=== PATIENT | male | born 1995 | race Caucasian/White ===

== ENCOUNTER 2018-10-15 04:20 | Emergency (ER) | payer SELFPAY ==
[~2018-10-15] VITALS: Ht 162.6 cm; Wt 81.0 kg
[2018-10-15 04:23] VITALS: BP 137/80; PULSE 97; RESP 18; Ht 162.6 cm; Wt 81.0 kg
[2018-10-15] MEDS ORDERED: OFLO5DRO7 RIGHT EAR (05:09)
[2018-10-15] MEDS ORDERED: AMOX500C2 PO (05:09)
[2018-10-15] MEDS ORDERED: IBUP-1542 PO (05:10)
[2018-10-15] MEDS ORDERED: ACET-141 PO (05:11)
--- NOTE | 2018-10-15 05:11 | ERD ---
ER Documentation Chief Complaint Chief Complaint right earache x 4 days HPI 23-year-old male presents for right ear pain x4 days. He states that he has 5 out of 10 pain that is nonradiating. Described as dull sensation. He has been taking Advil 200 mg without relief. He states he has decreased hearing. Denies any fevers or chills. Denies chest pain or shortness. Denies significant past medical history. No other modifying factors noted, no other treatments tried ROS All systems reviewed and are negative except as per history of present illness. Medications Home Meds Active Scripts Acetaminophen* (Acetaminophen*) 500 MG Extra Strength Tablet, 500 MG PO Q4H PRN for PAIN AND OR ELEVATED TEMP, #30 TAB Prov:AGNIESZKA JORDAN DO 10/15/18 Ibuprofen* (Motrin*) 600 Mg Tab, 600 MG PO Q6H PRN for PAIN AND OR ELEVATED TEMP, #30 TAB Prov:AGNIESZKA JORDAN 10/15/18 Ofloxacin Otic (Ofloxacin Otic) 5 Ml Drops, 5 DROP RIGHT EAR BID for ear infection for 7 Days, #1 BOTTLE Prov:AGNIESZKA JORDAN 10/15/18 Amoxicillin* (Amoxicillin*) 500 Mg Cap, 500 MG PO BID for ear infection for 7 Days, #14 CAP Prov:AGNIESZKA JORDAN DO 10/15/18 Allergies Allergies: Coded Allergies: No Known Drug Allergies (Verified Allergy, Unknown, 10/15/18) PMhx/Soc Medical and Surgical Hx: pt denies Medical Hx, pt denies Surgical Hx Hx Substance Use: Yes (MARIJUANA DAILY) Hx Tobacco Use: No FmHx Family History: No coronary disease Physical Exam Vitals Vital Signs Date Temp Pulse Resp B/P (MAP) Pulse Ox O2 O2 Flow FiO2 Time Delivery Rate 10/15/18 97.6 97 18 137/80 99 04:23 (99) Physical Exam Const: No acute distress Head: Atraumatic Eyes: Normal Conjunctiva ENT: Right external ear canal with some erythema, distal fragment was also erythema and has some bulging, normal Nose and Mouth examination. Neck: Full range of motion. No meningismus. Resp: Clear to auscultation bilaterally Cardio: Regular rate and rhythm, no murmurs Skin: No petechiae or rashes Ext: No cyanosis, or edema Neur: Awake and alert Psych: Normal Mood and Affect Procedures/MDM Medical Decision Making: Differential diagnosis includes but not limited to otitis media, otitis externa, labyrinthitis Patient appeared well on physical exam. Physical examination consistent with an otitis externa on the right side. Prescription(s): Patient given prescription for antibiotic eardrops and oral as well as supportive medications for pain. Patient advised to follow up with PCP in 1-2 days. Patient advised to return to ED for new or worsening symptoms. Patient stable on discharge from the ED. Disclaimer: Inadvertent spelling and grammatical errors are likely due to EHR/dictation software use and do not reflect on the overall quality of patient care. Also, please note that the electronic time recorded on this note does not necessarily reflect the actual time of the patient encounter. Departure Diagnosis: Primary Impression: Otitis externa Otitis externa type: unspecified type Chronicity: unspecified Laterality: right Qualified Codes: H60.91 - Unspecified otitis externa, right ear Condition: Fair Patient Instructions: External Ear Infection (Adult) Referrals: [facility] YOU HAVE RECEIVED A MEDICAL SCREENING EXAM AND THE RESULTS INDICATE THAT YOU DO NOT HAVE A CONDITION THAT REQUIRES URGENT TREATMENT IN THE EMERGENCY DEPARTMENT. FURTHER EVALUATION AND TREATMENT OF YOUR CONDITION CAN WAIT UNTIL YOU ARE SEEN IN YOUR DOCTORS OFFICE WITHIN THE NEXT 1-2 DAYS. IT IS YOUR RESPONSIBILITY TO MAKE AN APPOINTMENT FOR FOLOW-UP CARE. IF YOU HAVE A PRIMARY DOCTOR --you should call your primary doctor and schedule an appointment IF YOU DO NOT HAVE A PRIMARY DOCTOR YOU CAN CALL OUR PHYSICIAN REFERRAL HOTLINE AT IF YOU CAN NOT AFFORD TO SEE A PHYSICIAN YOU CAN CHOSE FROM THE FOLLOWING [facility] [address] [facility] [address] [facility] [facility] [address] [facility] [facility] [address] [facility] [facility] [address] [facility]. [facility]. [address] Additional Instructions: Call your primary care doctor TOMORROW for an appointment during the next 1-2 days.See the doctor sooner or return here if your condition worsens before your appointment time. AGNIESZKA JORDAN DO October 15, 2018 05:11
== END 2018-10-15 05:55 | disposition home or self-care (01) ==
LOC: FTE 04:20
DX: H60.91 Unspecified otitis externa, right ear (principal)
CPT/HCPCS: 99283